=== PATIENT | male | born 1980 | race Caucasian/White ===

== ENCOUNTER 2020-10-19 08:20 | Emergency (ER) | payer OTHER ==
[2020-10-19 09:48] LABS: BASOPHIL 0.5 % (0-2); EOSINOPHIL 0.5 % (0-5); HCT 48.4 % (42.0-52.0); HGB 17.3 g/dl (13.2-18.0); MCH 32.8 pg (25.0-31.0); MCHC 35.7 g/dL (32.0-36.0); MCV 91.7 fL (78.0-100.0); MONOCYTE 9.4 % (0-12); MPV 9.2 fL (6.0-9.5); NEUTROPHIL 77.4 % (41-80); NRBC 0; PLT 180 K/uL (150-400); RBC 5.28 M/uL (4.70-6.00); RDW 12.3 % (11.5-14.0); WBC 6.2 K/uL (4.0-10.5)
[2020-10-19 10:05] LABS: ALBUMIN 4.2 g/dL (3.4-5.0); BILIRUBIN - TOTAL 0.7 mg/dL (0.2-1.0); BUN/CREAT RATIO (CALC) 9.1 RATIO; CREATININE 0.66 mg/dL (0.67-1.17); GLOBULIN (CALCULATION) 2.6 g/dL; POTASSIUM 3.8 mmol/L (3.5-5.1); TOTAL PROTEIN 6.8 g/dL (6.4-8.2)
[2020-10-19 10:08] LABS: BILIRUBIN NEGATIVE (NEGATIVE); BLOOD NEGATIVE Ery/uL (NEGATIVE); CLARITY CLEAR (CLEAR); COLOR YELLOW (YELLOW); GLUCOSE (U) NORMAL (NORMAL); LEUKOCYTES NEGATIVE Leu/uL (NEGATIVE); NITRITE NEGATIVE (NEGATIVE); PROTEIN TRACE (LOW) mg/dL (NEGATIVE); SPECIFIC GRAVITY 1.025 (1.001-1.030); pH 6.5 (5.0-9.0)
[2020-10-19 10:13] LABS: AMPHETAMINES NEGATIVE (NEGATIVE); BARBITURATES NEGATIVE (NEGATIVE); ECSTASY (MDMA) NEGATIVE (NEGATIVE); MARIJUANA (THC) NEGATIVE (NEGATIVE); METHADONE NEGATIVE (NEGATIVE); OPIATES NEGATIVE (NEGATIVE); OXYCODONE NEGATIVE (NEGATIVE)
[2020-10-19 10:16] LABS: AMORPHOUS URATES CRYSTALS TRACE; URINARY RBC RARE; URINARY WBC RARE
== END 2020-10-19 11:48 | disposition home or self-care (01) ==
LOC: FER 08:20
PROVIDERS: Internal Medicine
DX: E86.0 Dehydration (principal); F17.210 Nicotine dependence, cigarettes, uncomplicated
CPT/HCPCS: 36415; 80053; 80305; 81001; 85025; 93005; 99284; J7030

== ENCOUNTER 2021-11-01 09:30 | Emergency (ER) | payer OTHER ==
[2021-11-01 10:11] LABS: BASOPHIL 0.4 % (0-2); EOSINOPHIL 1.1 % (0-5); HCT 42.6 % (42.0-52.0); HGB 14.8 g/dl (13.2-18.0); LYMPHOCYTE 14.1 % (15-48); MCH 30.7 pg (25.0-31.0); MCHC 34.7 g/dL (32.0-36.0); MCV 88.4 fL (78.0-100.0); MONOCYTE 5.7 % (0-12); MPV 9.5 fL (6.0-9.5); NEUTROPHIL 78.4 % (41-80); NRBC 0; PLT 284 K/uL (150-400); RBC 4.82 M/uL (4.70-6.00); WBC 9.1 K/uL (4.0-10.5)
[2021-11-01 10:40] LABS: ALBUMIN 3.7 g/dL (3.4-5.0); BILIRUBIN - TOTAL 0.2 mg/dL (0.2-1.0); BUN/CREAT RATIO (CALC) 14.5 RATIO; CREATININE 0.62 mg/dL (0.67-1.17); GLOBULIN (CALCULATION) 3.1 g/dL; MAGNESIUM 2.2 mg/dL (1.8-2.4); POTASSIUM 4.1 mmol/L (3.5-5.1); TOTAL PROTEIN 6.8 g/dL (6.4-8.2)
[2021-11-01] MEDS ORDERED: MIRAPEX0.25 MG PO (11:26)
== END 2021-11-01 11:39 | disposition home or self-care (01) ==
LOC: FER 09:30
PROVIDERS: Emergency Medicine
DX: R07.89 Other chest pain (principal); G25.81 Restless legs syndrome; Z28.310 Unvaccinated for COVID-19
CPT/HCPCS: 36415; 71045; 80053; 83735; 84443; 84484; 85025; 93005